=== PATIENT | male | born 1940 | race Caucasian/White ===

== ENCOUNTER 2018-05-18 05:56 | Day surgery (SDC) | payer OTHER ==
[2018-05-16 11:19] VITALS: BP 117/57
[2018-05-16 11:27] LABS: BASOPHILS % (AUTO) 1.1 % (0.0-5.0); EOSINOPHILS % (AUTO) 1.5 % (0.0-8.0); HEMATOCRIT 43.9 % (42-54); MEAN CORPUSCULAR HEMOGLOBIN 32.7 pg (27.0-33.0); MEAN CORPUSCULAR HGB CONC 34.5 g/dL (32.0-36.0); MEAN CORPUSCULAR VOLUME 94.7 fL (79-99); MONOCYTES % (AUTO) 9.4 % (3.0-13.0); PLATELET COUNT (AUTO) 217 K/uL (130-400); RED BLOOD CELL COUNT(AUTO) 4.63 MIL/uL (4.50-6.20); RED CELL DISTRIBUTION WIDTH 12.3 % (11.0-15.5); WHITE BLOOD COUNT (AUTO) 4.5 K/uL (4.8-10.8)
[2018-05-16 11:36] LABS: POTASSIUM 4.6 mmol/L (3.5-5.1)
[2018-05-16 11:53] LABS: INR 0.98 (0.85-1.15); PARTIAL THROMBOPLASTIN TIME 26.8 SEC (26.3-35.5); PROTHROMBIN TIME 10.3 SEC (9.6-11.6)
[~2018-05-18] VITALS: Ht 175.3 cm; Wt 81.7 kg
[~2018-05-18 05:56] MED LIST: ASPI-555 PO; OMEP20CA10 PO; ROSU5TAB11 PO; SERT100T12 PO; TRAV2.5D OU
[2018-05-18] MEDS ORDERED: SODIUM CHLORIDE 0.9% 1000ML 1,000 ML IV ONE (06:44)
[2018-05-18 06:45] VITALS: BP 119/66
--- NOTE | 2018-05-18 06:45 | NUR ---
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 I called Doctor Sierra to notify him that pt was asking if he should take the antibiotic. As per Doctor Rafi Sierra, pt does not have to take antibiotic for procedure from his point of view, however, if the patient desires to take for precaution purposes and comfort he would be able to take. I advised pt of what was discussed between Doctor Sierra and I. No other concerns.
[2018-05-18] MEDS ORDERED: CEFAZOLIN SODIUM 1 GM VIAL ONE (07:12)
[2018-05-18] MEDS ORDERED: BUPIVACAINE/PF 0.25% 50ML VIAL IJ ONE (07:12)
[2018-05-18] MEDS ORDERED: MEPERIDINE-PF 25 MG/ML SYG ONE (07:13)
[2018-05-18] MEDS ORDERED: LIDOCAINE HCL 1% MDV 50ML VIAL ONE (07:13)
[2018-05-18] MEDS ORDERED: MIDAZOLAM HCL 1 MG/ML 2ML VIAL ONE (07:13)
[2018-05-18] MEDS ORDERED: ACETAMINOPHEN-CODEINE 300/30MG TAB PO PRN ×2 (08:30)
[2018-05-18] MEDS ORDERED: ACETAMINOPHEN 325 MG TAB PO PRN (08:30)
[2018-05-18 08:40] VITALS: BP 114/72
[2018-05-18 08:55] VITALS: BP 132/72
== END 2018-05-18 09:08 | disposition home or self-care (01) ==
LOC: DAH 05:56
PROVIDERS: ATTEND Internal Medicine Cardiovascular Disease
DX: T82.897A Other specified complication of cardiac prosthetic devices, implants and grafts, initial encounter (principal); R55 Syncope and collapse; E78.5 Hyperlipidemia, unspecified; N40.0 Benign prostatic hyperplasia without lower urinary tract symptoms; Z98.890 Other specified postprocedural states; Z79.899 Other long term (current) drug therapy; Z87.891 Personal history of nicotine dependence
CPT/HCPCS: 33286; 36415; 80048; 85025; 85610; 85730; 93005; A4606; A4649; J0690; J3490 ×2; J7030; J2175; J2250